=== PATIENT | female | born 1980 | race Caucasian/White ===

== ENCOUNTER 2022-04-15 15:20 | Emergency (ER) | payer BC ==
[~2022-04-15] VITALS: Ht 165.1 cm; Wt 104.3 kg
--- NOTE | 2022-04-15 15:23 | NUR ---
[id number] FRM HOME C/O L LOWER BACK PAIN & R PINKY TOE PAIN S/P FELL OFF 5-6 STEPS OF STAIRS. TO ER BED 14, HOOKED TO MONITOR, CHANGED TO HOSP GOWN, WARM BLANKET PROVIDED, PATIENT ON HER L SIDE HER POSITION OF COMFORT. AWAITING MD FARNSWORTH
--- NOTE | 2022-04-15 16:30 | NUR ---
DR TRACEY AT BEDSIDE
[2022-04-15] MEDS ORDERED: HYDROCODONE/APAP 5/325MG TABLET PO ONE (17:00)
[2022-04-15] MEDS ORDERED: KETOROLAC TROMETHAMINE INJ 30 MG/ML VIAL IM ONE (17:00)
[2022-04-15] MEDS ORDERED: CYCLOBENZAPRINE 10 MG TABLET PO ONE (17:00)
[2022-04-15] MEDS ORDERED: KETOROLAC TROMETHAMINE 15 MG/ML VIAL ONE (17:13)
[2022-04-15] MEDS ORDERED: HYDROCODONE/APAP 5/325MG TABLET ONE (17:14)
[2022-04-15] MEDS ORDERED: CYCLOBENZAPRINE 10 MG TABLET ONE (17:14)
[2022-04-15] MEDS ORDERED: CYCL5TAB PO (18:27)
[2022-04-15] MEDS ORDERED: IBUP-1955 PO (18:27)
[2022-04-15] MEDS ORDERED: HYDR-4209 PO (20:02)
--- NOTE | 2022-04-15 20:23 | NUR ---
Patient discharged to home in stable condition. Written and verbal after care instructions given. Patient verbalizes understanding of instruction. Pt was assisted to waiting room on a wheelchair.
[2022-04-15 20:24] VITALS: BP 126/61
== END 2022-04-15 20:25 | disposition home or self-care (01) ==
LOC: ER 15:23
DX: S92.511A Displaced fracture of proximal phalanx of right lesser toe(s), initial encounter for closed fracture (principal); M54.50 Low back pain, unspecified; I10 Essential (primary) hypertension; F32.A Depression, unspecified; Z79.899 Other long term (current) drug therapy; W10.8XXA Fall (on) (from) other stairs and steps, initial encounter; Y93.89 Activity, other specified; Y92.89 Other specified places as the place of occurrence of the external cause; Y99.8 Other external cause status
CPT/HCPCS: 99283; 96372; 73660; J1885